=== PATIENT | female | born 1980 | race Two or more races ===

== ENCOUNTER 2019-02-13 02:20 | Inpatient (IN) | payer BC ==
[2019-02-13] MEDS ORDERED: DEXTROSE 5%-LACTATED RINGERS 500 ML IV ONE (03:00)
[2019-02-13 03:43] LABS: BASO % 0.6 % (0-2.0); EOS % 2.4 % (0-4.5); HEMOGLOBIN 12.2 GM/dL (10.7-15.3); LYMPH % 24.2 % (8-40); MCH 28.1 pg (25.7-33.7); MCHC 33.1 g/dl (32.0-36.0); MEAN CELL VOLUME 84.8 fl (80-96); MEAN PLT VOLUME 8.3 fl (7.5-11.1); NEUT % 64.8 % (42.8-82.8); PLATELET COUNT 223 K/MM3 (134-434); RBC 4.36 M/mm3 (3.60-5.2); RDW 13.7 % (11.6-15.6); WHITE BLOOD COUNT 8.2 K/mm3 (4.0-10.0)
[2019-02-13 03:58] LABS: INR 0.83 (0.83-1.09); PROTHROMBIN TIME (PATIENT) 9.8 SEC (9.7-13.0)
[2019-02-13] MEDS ORDERED: AMPICILLIN - 2 GM in SODIUM CHLORIDE 100 ML IVPB STA (04:00)
[2019-02-13] MEDS ORDERED: DEXTROSE 5%-LACTATED RINGERS 1,000 ML IV SCH (04:00)
[2019-02-13] MEDS ORDERED: BETAMET ACET/BETAMET NA PH 30 MG/5 ML VIAL ONE (04:10)
[2019-02-13] MEDS ORDERED: AMPICILLIN SODIUM 2 GM VIAL ONE (04:10)
[2019-02-13 04:18] LABS: BLOOD UREA NITROGEN 9.5 mg/dL (7-18); CALCIUM 9.1 mg/dL (8.5-10.1); CREATININE 0.5 mg/dL (0.55-1.3); POTASSIUM 3.8 mmol/L (3.5-5.1)
[2019-02-13 04:54] LABS: ACTIVATED PTT 28.9 SECONDS (25.2-36.5)
[2019-02-13] MEDS ORDERED: BETAMET ACET/BETAMET NA PH 30 MG/5 ML VIAL IM ONE (05:00)
[2019-02-13 05:23] VITALS: BMI 23.4
[2019-02-13] MEDS ORDERED: AMPICILLIN - 2 GM in SODIUM CHLORIDE 100 ML IVPB ONE (06:56)
[2019-02-13] MEDS ORDERED: ELECTROLYTE-148 SOLN 1,000 ML IV SCH (07:00)
[2019-02-13] MEDS: AMPICILLIN - 1 GM in SODIUM CHLORIDE 100 ML IVPB SCH ×4 (08:00→20:55)
[2019-02-13] MEDS ORDERED: AMPICILLIN SODIUM 1 GM VIAL ONE ×4 (08:26→20:53)
[2019-02-13] MEDS ORDERED: SODIUM CHLORIDE 100 ML IVPB ONE ×3 (08:26→15:46)
--- NOTE | 2019-02-13 09:41 | HP ---
Past Medical History - Primary Care Physician PCP:: Radha Blue - Admission Chief Complaint: PROM. 33 week History of Present Illness: 38 yo EGA 33.2 week EDC 04/01/19 admitted due to PPROM at 145 am 02/13 no HAs no contractions or bleeding History Source: Patient Limitations to Obtaining History: No Limitations - Past Medical History ...: 1 ...Para: 0 ...Term: 0 ...: 0 ...Spon : 0 ...Induced : 0 ...Multiple Gestation: 0 ...LMP: 06/12/18 ... Weeks Gestation by Dates: 33.2 ...EDC by Dates: 04/01/18 - Past Surgical History Past Surgical History: Yes: None Hx Myomectomy: No Hx Transabdominal Cerclage: No - Smoking History Smoking history: Never smoked - Alcohol/Substance Use Hx Alcohol Use: No History of Substance Use: reports: None - Social History History of Recent Travel: No Home Medications - Allergies Allergies/Adverse Reactions: Allergies Allergy/AdvReac Type Severity Reaction Status Date / Time No Known Allergies Allergy Verified 02/13/19 04:07 Review of Systems - Review of Systems Constitutional: reports: No Symptoms Eyes: reports: No Symptoms HENT: reports: No Symptoms Neck: reports: No Symptoms Cardiovascular: reports: No Symptoms Respiratory: reports: No Symptoms Gastrointestinal: reports: No Symptoms Genitourinary: reports: No Symptoms Breasts: reports: No Symptoms Reported Musculoskeletal: reports: No Symptoms Integumentary: reports: No Symptoms Neurological: reports: No Symptoms Endocrine: reports: No Symptoms Hematology/Lymphatic: reports: No Symptoms Psychiatric: reports: No Symptoms Physical Exam - Maternity Vital Signs: Vital Signs Temperature 98 F 02/13/19 07:00 Pulse Rate 108 H 02/13/19 08:15 Respiratory Rate 20 02/13/19 08:15 Blood Pressure 117/78 02/13/19 08:15 O2 Sat by Pulse Oximetry (%) Constitutional: Yes: Well Nourished, No Distress Cardiovascular: Yes: WNL Lungs: Clear to auscultation Breast(s): Yes: WNL - Abdominal Exam/OB Fundal Height: 33 Number of Fetuses: Single Presentation: Vertex Contractions: Yes Monitor Mode: External Category: I - Vaginal Exam/OB Dilatation (cm): closed Effacement (%): long Amniotic Membrane Status: Ruptured Amniotic Fluid: Yes: Clear Presentation: Vertex/Position - Physical Exam Musculoskeletal: Yes: WNL Extremities: Yes: WNL Edema: No Integumentary: Yes: WNL Psychiatric: Yes: WNL, Alert, Oriented - Labs Lab Results: CBC, BMP 02/13/19 03:35 02/13/19 03:35 Problem List - Problems (1) 33 weeks gestation of Problems reviewed: Yes Code(s): Z3A.33 - 33 WEEKS GESTATION OF (2) PROM (premature rupture of membranes) Problems reviewed: Yes Code(s): O42.90 - BILLY ROM, 7TH0 BETW RUPT & ONST LABR, UNSP WEEKS OF GEST Qualifiers: PROM onset of labor timing: onset of labor more than 24 hours following rupture PROM gestational age: -third trimester Qualified Code(s): O42.113 - premature rupture of membranes, onset of labor more than 24 hours following rupture, third trimester Assessment/Plan IUP at 33.2 week PPROM Cat 1 AMA Plan Send to [facility] for EFW Antibiotics betamethasone repeat in 24 hours
[2019-02-13] MEDS: DEXTROSE 5%-LACTATED RINGERS 1,000 ML IV SCH (10:22)
--- NOTE | 2019-02-13 14:28 | CONSULT ---
Consult - text type - Consultation Consultation Note: Asked by Ob for a consult on Mrs. Zhou. She is a 38 yo at 33.2 weeks , presented with PPROM since 1:45 on 02/13/19. labs: ABpositive, RPR negative, HepBsAg negative, Rubella immune, HIV negative, GBS unknown. As per mother anatomy scan was normal and otherwise uncomplicated. Spoke with Mrs. Zhou and explained to her the possible problems in the related to prematurity and more specifically around the 33-34 weeks gestation like: RDS, low weight, hypoglycemia, and hyperbilirubinemia, need for tehrmoregulation, as well as feeding difficulties or need for r/o sepsis in the context of premature ROM. Explained to her that management will depend on the baby's clinical status. We discussed the importance of . I answered all her questions. Plan as pe ob. Steroids and antibiotics as per ob.
[2019-02-13] MEDS ORDERED: SODIUM CHLORIDE 200 ML IVPB ONE (20:53)
[2019-02-13 22:59] LABS: BASO % 0.2 % (0-2.0); HEMATOCRIT 34.4 % (32.4-45.2); HEMOGLOBIN 11.1 GM/dL (10.7-15.3); LYMPH % 8.6 % (8-40); MCH 27.4 pg (25.7-33.7); MCHC 32.2 g/dl (32.0-36.0); MEAN CELL VOLUME 85.2 fl (80-96); MEAN PLT VOLUME 8.6 fl (7.5-11.1); MONO % 6.6 % (3.8-10.2); NEUT % 84.6 % (42.8-82.8); PLATELET COUNT 224 K/MM3 (134-434); RBC 4.04 M/mm3 (3.60-5.2); RDW 13.7 % (11.6-15.6); WHITE BLOOD COUNT 11.7 K/mm3 (4.0-10.0)
[2019-02-14] MEDS ORDERED: AMPICILLIN SODIUM 1 GM VIAL ONE ×3 (00:13→08:36)
[2019-02-14] MEDS ORDERED: SODIUM CHLORIDE 100 ML IVPB ONE ×3 (00:13→08:35)
[2019-02-14] MEDS: AMPICILLIN - 1 GM in SODIUM CHLORIDE 100 ML IVPB SCH ×4 (01:00→19:55)
[2019-02-14] MEDS ORDERED: CALCIUM CARBONATE SUSPENSION - 500 MG/5 ML ML PO PRN (01:03)
[2019-02-14] MEDS ORDERED: BETAMET ACET/BETAMET NA PH 30 MG/5 ML VIAL IM ONE (05:30)
[2019-02-14] MEDS: DEXTROSE 5%-LACTATED RINGERS 1,000 ML IV SCH (08:00)
[2019-02-14 08:22] LABS: BASO % 0.1 % (0-2.0); HEMATOCRIT 31.1 % (32.4-45.2); HEMOGLOBIN 10.2 GM/dL (10.7-15.3); LYMPH % 10.3 % (8-40); MCH 27.8 pg (25.7-33.7); MCHC 32.9 g/dl (32.0-36.0); MEAN CELL VOLUME 84.5 fl (80-96); MEAN PLT VOLUME 8.6 fl (7.5-11.1); MONO % 4.1 % (3.8-10.2); NEUT % 85.5 % (42.8-82.8); PLATELET COUNT 193 K/MM3 (134-434); RBC 3.68 M/mm3 (3.60-5.2); RDW 13.8 % (11.6-15.6); WHITE BLOOD COUNT 10.6 K/mm3 (4.0-10.0)
[2019-02-14] MEDS ORDERED: morphine SULFATE/PF 0.5 MG/ML (2cc Syringe - QUVA) ONE (09:06)
[2019-02-14] MEDS ORDERED: ePHEDrine SULFATE 50 MG/1 ML AMPULE ONE (09:07)
[2019-02-14] MEDS ORDERED: ceFAZolin SODIUM 1 GM VIAL ONE ×2 (09:07)
[2019-02-14] MEDS ORDERED: CITRIC ACID/SODIUM CITRATE 30 ML UNIT-DOSE CUP PO ONE (10:02)
--- NOTE | 2019-02-14 10:02 | PN ---
Ante-Partal Exam - Subjective Subjective: Pt sp prolonged decel x 3 min after contraction Vital Signs: Vital Signs Temperature 97.9 F 02/14/19 08:00 Pulse Rate 78 02/14/19 08:00 Respiratory Rate 18 02/14/19 08:00 Blood Pressure 114/67 02/14/19 08:00 O2 Sat by Pulse Oximetry (%) Bleeding: No Headache: No Visual changes: No Right upper quadrant pain: No - Contractions Contractions: Yes Regularity: Irregular Monitor Mode: External - Exam during Labor Variability: Moderate Heart Rate Location: [facility] Category: II Monitor Accelerations: Present Monitor Decelerations: Prolonged Amniotic Membrane Status: Intact Amniotic Fluid: Clear Presentation: Vertex - Intrapartum Hemorrhage Risk Risk Score: 0 Risk Level: Low Risk - Assessment/Plan Assessment/Plan: Prolonged Decel Cat 2 PPROM at 33 week Plan Primary Section
[2019-02-14] MEDS ORDERED: METHYLERGONOVINE MALEATE 0.2 MG/1 ML AMP IM PRN (10:03)
[2019-02-14] MEDS ORDERED: WITCH HAZEL 50% (TUCKS) 40 PAD/JAR PAD TP PRN (10:03)
[2019-02-14] MEDS ORDERED: IBUPROFEN 800 MG/8 ML IJ IVPB PRN (10:03)
[2019-02-14] MEDS ORDERED: CLINDAMYCIN PHOSPHATE 600 MG/4 ML VIAL ONE (10:06)
--- NOTE | 2019-02-14 10:10 | OP ---
Operative Note - Note: Operative Date: 02/14/19 Pre-Operative Diagnosis: PPROM. 33 week. Nonreasurring tracing Operation: Primary Low transverse Section Findings: Live male infant Post-Operative Diagnosis: Same as Pre-op Surgeon: Radha Blue Silver Designer: Alexandra Wakefield Anesthesia: Spinal Estimated Blood Loss (mls): 800 Operative Report Dictated: Yes
--- NOTE | 2019-02-14 10:37 | CONSULT ---
Past Medical History, Laborist - Primary Care Physician PCP:: Radha Blue - Admission Chief Complaint: Pt. is admitted at 33 wks 3 days w PPROM since 02.13.19. Bradykardia during routine monitoring for about 2 minutes. Called to the [facility] STAT. History of Present Illness: First bvaby. Given BMZ, on GBS prophylaxis. History Source: Patient, Caregiver Limitations to Obtaining History: No Limitations - Past Medical History ...: 1 ...Para: 0 ...Term: 0 ...: 0 ...Spon : 0 ...Induced : 0 ...Multiple Gestation: 0 ...LMP: 06/12/18 ... Weeks Gestation by Dates: 33.2 ...EDC by Dates: 04/01/18 - Past Surgical History Past Surgical History: Yes: None - Smoking History Smoking history: Never smoked - Alcohol/Substance Use Hx Alcohol Use: No History of Substance Use: reports: None - Social History History of Recent Travel: No Review of Systems - Review of Systems Constitutional: denies: No Symptoms, Chills, Diaphoresis, Fever, Lethargy, Loss of Appetite, Malaise, Night Sweats, Unintentional Wgt. Loss, Weakness, Other Eyes: denies: No Symptoms, Blind Spots, Blurred Vision, Double Vision, Eye Pain , Floaters, Photophobia, Recent Change in Vision, Other HENT: denies: No Symptoms, Difficult Swallowing, Ear Discharge, Ear Pain, Epistaxis, Gingival Bleeding, Hearing Loss, Mouth Swelling, Nasal Congestion, Ocular Prosthesis, Throat Pain, Toothache, Ringing in Ears, Other Neck: denies: No Symptoms, Decreased ROM, Lumps, Pain on Movement, Stiffness, Swollen Glands, Tenderness, Other Cardiovascular: denies: No Symptoms, Chest Pain, Edema, Palpitations, Shortness of Breath, Other Respiratory: denies: No Symptoms, Cough, Exercise Intolerance, Hemoptysis, Orthopnea, PND, Snoring, SOB, SOB on Exertion, Wheezing, Other Gastrointestinal: denies: No Symptoms, Abdominal Pain, Bloating, Constipation, Diarrhea, Dysphagia, Indigestion, Melena, Nausea, Rectal Bleeding, Vomiting, Vomiting Blood, Other Genitourinary: denies: No Symptoms, Burning, Discharge, Dysuria, Flank Pain, Frequency, Hematuria, Incontinence, Lesions, Menses, Pain, Testicular Mass, Testicular Pain, Testicular Swelling, Urgency, Vaginal Bleeding, Other Breasts: denies: No Symptoms Reported, See HPI, Breast Implants, Discharge from Nipple, Lumps, Pain, Skin Changes, Other Musculoskeletal: denies: No Symptoms, Back Pain, Crepitus, Decreased ROM, Extremity Pain, Joint Pain, Joint Swelling, Muscle Pain, Muscle Cramps, Muscle Weakness, Other Integumentary: denies: No Symptoms, Blister, Bruising, Change in Color, Eczema, Erythema, Incision, Lesions, Lump, Pallor, Pruritis, Rash, Wound, Other Neurological: denies: No Symptoms, Change in LOC, Change in Speech, Confusion, Dizziness, Headache, Incoordination, Numbness, Parasthesia, Pre-Existing Deficit , Seizure, Syncope, Tremors, Unsteady Gait, Weakness, Other Endocrine: denies: No Symptoms, Excessive Sweating, Flushing, Increased Hunger, Increased Thirst, Intolerance to Cold, Intolerance to Heat, Unexplained Weight Gain, Unexplained Weight Loss, Other Hematology/Lymphatic: denies: No Symptoms, Easily Bruised, Excessive Bleeding, Swollen Glands, Other Psychiatric: denies: No Symptoms, Altered Sleep Pattern, Anxiety, Depression, Hallucinations, Panic, Paranoia, Suicidal, Other Physical Exam - Maternity Vital Signs: Vital Signs Temperature 97.9 F 02/14/19 08:00 Pulse Rate 78 02/14/19 08:00 Respiratory Rate 18 02/14/19 08:00 Blood Pressure 114/67 02/14/19 08:00 O2 Sat by Pulse Oximetry (%) - Abdominal Exam/OB Fundal Height: 34 Number of Fetuses: Single Presentation: Vertex Contractions: No Monitor Mode: External Heart Rate Location: Midline Category: II - Vaginal Exam/OB Vaginal Bleediing: No Dilatation (cm): 0 Effacement (%): 0 Amniotic Membrane Status: Ruptured Presentation: Vertex/Position Station: -2 - Physical Exam Musculoskeletal: No: WNL, Back Pain, Joint Stiffness, Joint Swelling, Muscle Pain, Muscle Weakness, Other Extremities: No: WNL, Amputation, Calf Tenderness, Cold, Cool, Cyanosis, Deformity, Delayed Capillary Refill, Erythema, External Rotation, Internal Rotation, Pallor, Shortened, Other Integumentary: No: WNL, Body Piercing, Bruising, Erythema, Incision, Jaundice, Laceration, Petechiae, Pressure Ulcer, Rash, Skin Tear, Tattoos, Tenting, Onychomycosis, Venous Stasis Changes, Other - Labs Lab Results: CBC, BMP 02/14/19 07:24 02/13/19 03:35 Problem List - Problems (1) bradycardia, antepartum condition or complication Code(s): O36.8390 - MATERN CARE FOR ABNLT FETL HRT RATE OR RHYM, UNSP TRI, UNSP (2) PROM (premature rupture of membranes) Code(s): O42.90 - BILLY ROM, 7TH0 BETW RUPT & ONST LABR, UNSP WEEKS OF GEST Qualifiers: PROM onset of labor timing: onset of labor more than 24 hours following rupture PROM gestational age: -third trimester Qualified Code(s): O42.113 - premature rupture of membranes, onset of labor more than 24 hours following rupture, third trimester Assessment/Plan Called to patient for bradykardia of about 2 minutes. Reactive tracing prior to this episode. Responded to repositioning. Transfer ro L&D from the floor. Continuous monitor. CBC pnd. Delivery by induction vs. c/section. TBD following discussion with the attending MD, Dr. Blue.
[2019-02-14] MEDS ORDERED: KETOROLAC TROMETHAMINE 30 MG/1 ML VIAL ONE (11:08)
--- NOTE | 2019-02-14 11:29 | SURG ---
Surgery Biblical Languages Professor Note Biblical Languages Professor: Alexandra Wakeifeld PA-C Date of Service: 02/14/19 Diagnosis: PPROM. 33 week. Nonreasurring tracing Procedure: Primary Section I was present for the entirety of the operative procedure. For further detail, please refer to operative report. Visit type - Case Type Case Type: ED Admission - Emergency Emergency Visit: Yes ED Registration Date: 02/13/19 Care time: The patient presented to the Emergency Department on the above date and was hospitalized for further evaluation of their emergent condition. - New patient This patient is new to me today: Yes Date on this admission: 02/14/19
[2019-02-14 11:39] LABS: POC NITRAZINE POS
[2019-02-14] MEDS ORDERED: ONDANSETRON 4 MG/2 ML VIAL IVPUSH PRN (11:54)
--- NOTE | 2019-02-14 11:54 | OP ---
DATE OF OPERATION: 02/14/2019 PREOPERATIVE DIAGNOSIS: Nonreassuring tracing, intrauterine at 33.4 weeks as well as premature rupture of membranes. OPERATION: Primary low transverse section. POSTOPERATIVE DIAGNOSIS: Live male . SURGEON: Radha Blue MD GLOBAL LOGISTICS ANALYST: DOMINGO Mittal. unavailable. ANESTHESIA: Spinal. DESCRIPTION OF PROCEDURE: Patient was taken to the operating room. Placed in supine position. Prepped and draped in usual sterile fashion. Time-out was performed in accordance with hospital regulation. Pfannenstiel skin incision was made with a scalpel. Cautery was then used to go through layers of abdominal wall to the level of the fascia. Fascia was cut in the midline. Cautery was then used to open the fascia in a smiling fashion. Kochers were then used to bluntly and sharply dissect the rectus muscle off the fascia. Muscle was split in the midline. Peritoneal cavity was then entered and carried upward and downward. Bladder retractor was then placed. Scalpel was then used to make a low transverse uterine incision. Incision was carried upward using bandage scissors. Live male was delivered in OT position. Nuchal cord x2 was reduced. Shoulders were delivered without difficulty. Cord was clamped and cut. Cord blood obtained. Cord pH obtained. was handed to oil field equipment mechanic supervisor. Placenta was manually extracted from the uterus. The uterus was exteriorized and cleaned with clean lap pads. Uterine incision then closed using 0 Biosyn suture, 1st layer continuous and locking, 2nd layer imbricating the 1st layer. Hemostasis was achieved. Uterus interiorized. Tubes and ovaries noted to be normal. Abdominal sweep done. Peritoneum was then cleaned with clean lap pads. Peritoneum was then closed using 0 Biosyn suture, 1st layers continuous and locking with continuous stitch. Fascia was then closed using 0 Vicryl suture in 2 parts. The skin was then closed using 3-0 Vicryl in subcuticular fashion. Wound was washed and dressed. Patient tolerated the procedure well. Estimated blood loss was 500 mL. RADHA BLUE M.D. GAURAV/[id number]
[2019-02-14] MEDS ORDERED: ACETAMINOPHEN/CAFFEINE/BUTALBITAL 1 TAB PO PRN (11:58)
[2019-02-14] MEDS: OXYTOCIN 20 UNITS in 0.9% NS 20 UNIT/1,000 ML INFUS.BAG IV SCH ×2 (12:00→20:08)
[2019-02-14] MEDS: DOCUSATE SODIUM 100 MG CAPSULE (FP) PO SCH ×2 (13:00→22:09)
[2019-02-14] MEDS ORDERED: COSYNTROPIN 0.25 MG VIAL IVPB SCH (13:00)
[2019-02-14] MEDS: CEFAZOLIN 1 GM/D5W 1 GM/50 ML BAG IVPB SCH (17:08)
[2019-02-15] MEDS: CEFAZOLIN 1 GM/D5W 1 GM/50 ML BAG IVPB SCH ×2 (02:35→09:10)
[2019-02-15] MEDS: SIMETHICONE 80 MG TAB.CHEW (FP) PO PRN ×4 (06:49→22:13)
[2019-02-15] MEDS: IBUPROFEN 600 MG TABLET (FP) PO PRN ×4 (06:49→22:14)
[2019-02-15] MEDS: PRENATAL VITAMINS W/ FOLIC ACID TABLET (FP) PO SCH (09:10)
[2019-02-15] MEDS: DOCUSATE SODIUM 100 MG CAPSULE (FP) PO SCH ×2 (09:10→22:13)
[2019-02-15] MEDS ORDERED: oxyCODONE HCL 5 MG TABLET PO PRN (10:03)
[2019-02-15] MEDS ORDERED: BISACODYL 10 MG SUPP.RECT RC PRN (10:03)
[2019-02-15] MEDS: oxyCODONE HCL 5 MG TABLET PO PRN ×3 (10:27→22:13)
--- NOTE | 2019-02-15 10:38 | PN ---
Progress Note, Physician Chief Complaint: s/p c section for PPROM post op day one History of Present Illness: under spinal anesthesia with duramorph for post operative pain control. - Current Medication List Current Medications: Active Medications Acetaminophen/Butalbital/Caffeine (Fioricet -) 1 tablet PO Q4H PRN PRN Reason: HEADACHE Bisacodyl (Dulcolax Suppository -) 10 mg RC PRN PRN PRN Reason: CONSTIPATION Calcium Carbonate (Calcium Carb Oral Suspension -) 500 mg PO Q4H PRN PRN Reason: DYSPEPSIA Diphenhydramine HCl (Benadryl Injection -) 25 mg IVPUSH Q4H PRN PRN Reason: Pruritis Last Admin: 02/14/19 17:35 Dose: 25 mg Docusate Sodium (Colace -) 100 mg PO BID EUSEBIO Last Admin: 02/15/19 09:10 Dose: 100 mg Ferrous Sulfate (Feosol -) 325 mg PO BID EUSEBIO Cefazolin Sodium (Ancef 1 Gm Premixed Ivpb -) 1 gm in 50 mls @ 100 mls/hr IVPB Q8H-IV EUSEBIO Stop: 02/15/19 17:59 Last Admin: 02/15/19 09:10 Dose: 100 mls/hr Oxytocin/Sodium Chloride (Normal Saline+20 Units Oxytocin -) 20 unit in 1,000 mls @ 125 mls/hr IV ASDIR EUSEBIO Last Admin: 02/14/19 20:08 Dose: 125 mls/hr Ibuprofen (Caldolor Injection -) 800 mg IVPB Q8H PRN PRN Reason: FEVER Ibuprofen (Motrin -) 600 mg PO Q4H PRN PRN Reason: PAIN LEVEL 1 - 3 Last Admin: 02/15/19 10:26 Dose: 600 mg Methylergonovine Maleate (Methergine Injection -) 0.2 mg IM Q4H PRN PRN Reason: Excessive Bleeding (L&D) Ondansetron HCl (Zofran Injection) 4 mg IVPUSH Q4H PRN PRN Reason: NAUSEA Oxycodone HCl (Roxicodone -) 5 mg PO Q4H PRN PRN Reason: PAIN LEVEL 4 - 6 Last Admin: 02/15/19 10:27 Dose: 5 mg Oxycodone HCl (Roxicodone -) 10 mg PO Q4H PRN PRN Reason: PAIN LEVEL 7 - 10 Multivit/Folic Acid/Iron ( Vitamins (Sjr) -) 1 tab PO DAILY EUSEBIO Last Admin: 02/15/19 09:10 Dose: 1 tab Simethicone (Mylicon -) 80 mg PO Q4H PRN PRN Reason: GAS Last Admin: 02/15/19 10:27 Dose: 80 mg Witch Maritza/Glycerin (Tucks Pads -) 1 pad TP PRN PRN PRN Reason: Pain - Topical - Objective Vital Signs: Vital Signs Temperature 97.7 F 02/15/19 09:55 Pulse Rate 86 02/15/19 09:55 Respiratory Rate 18 02/15/19 10:00 Blood Pressure 121/68 02/15/19 09:55 O2 Sat by Pulse Oximetry (%) 98 02/14/19 12:25 Constitutional: Yes: Well Nourished Cardiovascular: Yes: WNL Respiratory: Yes: WNL Gastrointestinal: Yes: WNL Labs: CBC, BMP 02/14/19 07:24 02/13/19 03:35 INR, PTT INR 0.83 (0.83-1.09) 02/13/19 03:35 Assessment/Plan patient had CSF leak with the 19 gauge introducer and was advised on the high likelihood PDPH. No symptoms currently, pain controlled, no further interventio at this time. Advised patient to increase fluid and caffeine intake as prophylaxis. Please consult the dept of anesthesiology with any signs of PDPH in the next few days.
[2019-02-15 11:04] LABS: BASO % 0.1 % (0-2.0); HEMOGLOBIN 9.3 GM/dL (10.7-15.3); LYMPH % 7.8 % (8-40); MCH 28.2 pg (25.7-33.7); MCHC 33.3 g/dl (32.0-36.0); MEAN CELL VOLUME 84.6 fl (80-96); MEAN PLT VOLUME 8.3 fl (7.5-11.1); MONO % 5.7 % (3.8-10.2); NEUT % 86.4 % (42.8-82.8); PLATELET COUNT 228 K/MM3 (134-434); RBC 3.31 M/mm3 (3.60-5.2); WHITE BLOOD COUNT 13.6 K/mm3 (4.0-10.0)
--- NOTE | 2019-02-15 15:31 | PN ---
Post Note - Post Date of Delivery: 02/14/19 Vital Signs: Vital Signs - 24 hr 02/14/19 02/14/19 02/14/19 16:00 17:00 18:00 Temperature Pulse Rate Respiratory 20 20 18 Rate Blood Pressure 02/14/19 02/14/19 02/14/19 19:00 20:00 21:00 Temperature Pulse Rate Respiratory 18 18 18 Rate Blood Pressure 02/14/19 02/14/19 02/15/19 22:00 23:00 00:00 Temperature 98.5 F Pulse Rate 83 Respiratory 18 18 18 Rate Blood Pressure 101/54 L 02/15/19 02/15/19 02/15/19 01:00 02:00 03:00 Temperature 98.2 F Pulse Rate 81 Respiratory 18 18 18 Rate Blood Pressure 113/59 L 02/15/19 02/15/19 02/15/19 04:00 05:00 06:00 Temperature 97.9 F Pulse Rate 76 Respiratory 18 18 18 Rate Blood Pressure 109/52 L 02/15/19 02/15/19 02/15/19 07:00 08:00 09:00 Temperature Pulse Rate Respiratory 18 18 18 Rate Blood Pressure 02/15/19 02/15/19 02/15/19 09:55 10:00 11:00 Temperature 97.7 F Pulse Rate 86 Respiratory 18 18 18 Rate Blood Pressure 121/68 Labs: Laboratory Results - last 24 hr 02/15/19 10:44 WBC 13.6 H RBC 3.31 L Hgb 9.3 L Hct 28.0 L MCV 84.6 MCH 28.2 MCHC 33.3 RDW 14.0 Plt Count 228 MPV 8.3 Absolute Neuts (auto) 11.8 H Neutrophils % 86.4 H Lymphocytes % 7.8 L D Monocytes % 5.7 Eosinophils % 0.0 Basophils % 0.1 Nucleated RBC % 0 - Subjective Subjective: No Complaints - Objective Afebrile: Yes Breast: Not engorged
[2019-02-15] MEDS: OXYTOCIN 20 UNITS in 0.9% NS 20 UNIT/1,000 ML INFUS.BAG IV SCH (19:44)
[2019-02-15] MEDS: FERROUS SO4 325 MG TABLET (FP) PO SCH (22:13)
[2019-02-16] MEDS: oxyCODONE HCL 5 MG TABLET PO PRN ×3 (08:44→23:39)
[2019-02-16] MEDS: IBUPROFEN 600 MG TABLET (FP) PO PRN ×3 (08:44→23:40)
[2019-02-16] MEDS: SIMETHICONE 80 MG TAB.CHEW (FP) PO PRN ×3 (08:46→23:39)
--- NOTE | 2019-02-16 08:52 | PN ---
Progress Note (short form) - Note Progress Note: POD #2 s/p C/S under spinal anesthesia with Duramorph. Doing well, pain controlled with oral Rx. Patient had CSF leak with 19g introducer, treated with conservative measures prophylactically. Patient denies symptoms of PDPH at this time, ambulating and able to pump. All questions answered.
[2019-02-16] MEDS: FERROUS SO4 325 MG TABLET (FP) PO SCH ×2 (10:14→22:25)
[2019-02-16] MEDS: DOCUSATE SODIUM 100 MG CAPSULE (FP) PO SCH ×2 (10:14→22:25)
[2019-02-16] MEDS: PRENATAL VITAMINS W/ FOLIC ACID TABLET (FP) PO SCH (10:14)
--- NOTE | 2019-02-16 18:46 | PN ---
Post Note - Post Date of Delivery: 02/14/19 Post Day: 2 Vital Signs: Vital Signs - 24 hr 02/15/19 02/16/19 22:00 10:00 Temperature 98.1 F 98.1 F Pulse Rate 71 78 Respiratory 18 18 Rate Blood Pressure 119/67 116/70 - Subjective Subjective: No Complaints - Objective Afebrile: Yes Breast: Not engorged Abdomen: Soft, Non-tender Uterus: Fundus firm Vagina: Scant lochia Extremities: Non-tender - Assessment/Plan (1) 33 weeks gestation of Assessment: Other (SP Primary Section) Plan: Routine Care
--- NOTE | 2019-02-17 08:08 | PN ---
Post Note - Post Date of Delivery: 02/14/19 Vital Signs: Vital Signs - 24 hr 02/16/19 02/16/19 10:00 22:00 Temperature 98.1 F Pulse Rate 78 79 Respiratory 18 18 Rate Blood Pressure 116/70 121/73 - Subjective Subjective: No Complaints - Objective Afebrile: Yes Breast: Not engorged Abdomen: Soft Uterus: Fundus firm Vagina: Scant lochia Extremities: Non-tender
[2019-02-17] MEDS: PRENATAL VITAMINS W/ FOLIC ACID TABLET (FP) PO SCH (09:49)
[2019-02-17] MEDS: FERROUS SO4 325 MG TABLET (FP) PO SCH ×2 (09:49→22:07)
[2019-02-17] MEDS: DOCUSATE SODIUM 100 MG CAPSULE (FP) PO SCH ×2 (09:49→22:07)
[2019-02-17 10:22] LABS: BASO % 0.4 % (0-2.0); EOS % 2.1 % (0-4.5); HEMOGLOBIN 10.4 GM/dL (10.7-15.3); LYMPH % 15.4 % (8-40); MCH 28.5 pg (25.7-33.7); MCHC 33.5 g/dl (32.0-36.0); MEAN PLT VOLUME 7.9 fl (7.5-11.1); NEUT % 75.1 % (42.8-82.8); PLATELET COUNT 280 K/MM3 (134-434); RBC 3.65 M/mm3 (3.60-5.2); RDW 13.8 % (11.6-15.6); WHITE BLOOD COUNT 14.5 K/mm3 (4.0-10.0)
[2019-02-17] MEDS: oxyCODONE HCL 5 MG TABLET PO PRN ×2 (11:47→22:10)
[2019-02-17] MEDS: IBUPROFEN 600 MG TABLET (FP) PO PRN ×2 (11:47→22:09)
[2019-02-17] MEDS: SIMETHICONE 80 MG TAB.CHEW (FP) PO PRN ×2 (11:48→22:07)
[2019-02-17 13:54] LABS: ANISOCYTOSIS 0; MACROCYTOSIS 0; PLATELET ESTIMATE NORMAL
[2019-02-17 23:13] VITALS: TEMP 98.7
[2019-02-18] MEDS: oxyCODONE HCL 5 MG TABLET PO PRN (08:04)
[2019-02-18] MEDS: IBUPROFEN 600 MG TABLET (FP) PO PRN (08:05)
--- NOTE | 2019-02-18 08:24 | DS ---
Physical Exam-AIR SAW OPERATOR Vital Signs: Vital Signs Temperature 98.7 F 02/17/19 22:00 Pulse Rate 74 02/17/19 22:00 Respiratory Rate 18 02/17/19 22:00 Blood Pressure 122/70 02/17/19 22:00 O2 Sat by Pulse Oximetry (%) 98 02/14/19 12:25 Constitutional: No: No Distress Eyes: Yes: Conjunctiva Clear HENT: Yes: Atraumatic Neck: Yes: Supple Cardiovascular: Yes: Regular Rate and Rhythm Respiratory: Yes: Regular Gastrointestinal: Yes: Normal Bowel Sounds ...Rectal Exam: Yes: WNL Renal/: Yes: WNL Pelvis: Yes: WNL External Genitalia: Yes: Normal Vaginal Exam: Yes: Normal Cervix: Yes: Normal Uterus: Yes: Firm ....Post : Yes: Uterus firm, Moderate lochia serosa Breast(s): Yes: WNL Musculoskeletal: Yes: WNL Extremities: Yes: WNL Wound/Incision: Yes: Well Approximated, Steri Strips (in place) Neurological: Yes: Alert, Oriented ...Motor Strength: WNL Psychiatric: Yes: Alert, Oriented Labs: CBC, BMP 02/17/19 09:55 02/13/19 03:35 Delivery - Delivery Type of Anesthesia: Spinal Episiotomy/Laceration: None EBL (cc): 800 Delivery, Single - Stages of Labor Date of Delivery: 02/14/19 Time of Delivery: 10:55 Time Placenta Delivered: 10:56 - Condition of Lead Database Administrator/Beater Out Present: Yes Name: Loyda Sierra Gender: Male Weight: 4 lb 4 oz Position: OT Total Hours ROM (Hrs/Mins): 33h11m - 1 Minute Total Score: 9 5 Minutes Total Score: 9 - [address] Feeding Plan Initial Plan: Elected not to breastfeed exclusively throughout hospitalization Discharge Summary Problems reviewed: Yes Reason For Visit: LABOR ADMIT Current Active Problems 33 weeks gestation of (Acute) bradycardia, antepartum condition or complication (Acute) PROM (premature rupture of membranes) (Acute) Procedures: Principal: Primary Low Transverse Hospital Course: Routine post op care Health Concerns: None Plan of Treatment: Analgesia as needed Follow up with MD in 1 week Goals: Resume normal activities in 6 weeks Condition: Good - Instructions Diet, Activity, Other Instructions: Physical activity Resume your normal everyday activity as tolerated no heavy lifting or exercise until seen by your surgeon. You may walk unlimited augusto of and climb stairs. You may resume driving the car when you feel safe and comfortable behind the wheel. No sexual activity as instructed. Wound care If you have a bandage, leave it on, and keep dry for 48-72 hours. After that time discard the outer bandage. If they are tapes on the skin under the out of bandage leave them in place. They will peel off in the next 7 to 10 days. Do Not Peel them off. You may shower the day after surgery. If there are tapes present on the skin, you may shower over them. Diet There are no dietary restrictions. Eat healthy, high-fiber foods. Drink 6 to 8 glasses of liquid each day. This will assist in keeping your bowels are regular. Pain management You may take Tylenol or acetaminophen or Ibuprofen (for example, Motrin, Advil etc.) from my pain prescription medication is ordered should be taken as prescribed for moderate to severe pain. Call MD for any of the following: Severe pain not relieved by medication Fever of 101 or higher Excessive bleeding or drainage on dressing Inability to urinate Disposition: HOME - Home Medications Comprehensive Discharge Medication List: Ambulatory Orders Vitamins (Sjr) - 1 tab PO DAILY 02/14/19
[2019-02-18] MEDS: PRENATAL VITAMINS W/ FOLIC ACID TABLET (FP) PO SCH (10:22)
[2019-02-18] MEDS: DOCUSATE SODIUM 100 MG CAPSULE (FP) PO SCH (10:22)
[2019-02-18] MEDS: FERROUS SO4 325 MG TABLET (FP) PO SCH (10:22)
[2019-02-18 10:41] VITALS: BP 117/71; PULSE 71
--- NOTE | 2019-02-22 15:11 | PATH ---
Surgical Pathology Report Patient Name: DALE ALMONTE Med. Rec. #: [id number] /Age/Gender: 1980 (Age: 38) / F Account: [id number] Location: [facility] OBS/COMPANY SECRETARY Taken: 02/14/2019 Received: 02/15/2019 Reported: 02/22/2019 Physicians: Radha Blue M.D. Specimen(s) Received PLACENTA Clinical History at 33.4 weeks, SROM, status post betamethasone x2, nonreassuring heart rate Final Diagnosis PLACENTA: THIRD TRIMESTER PLACENTA. TRIVASCULAR CORD. MEMBRANES WITH NO DIAGNOSTIC ABNORMALITIES. Electronically Signed Court Christianson M.D. Gross Description The specimen is received fresh labeled placenta and is a 329 gram, 13.0 x 12.5 x 2.8 cm. placenta with attached membranes and umbilical cord. The attached membranes are andrade, translucent with focal opacities and insert marginally. The umbilical cord measures 8 cm. in length and averages 0.8 cm. in diameter. The cord inserts eccentrically, 2 cm. to the nearest margin. No true knots or strictures are identified. Cut surface of the umbilical cord reveals 3 vessels. The surface is oconnor-blue with minimal fibrin deposition and appropriate caliber vessels. The maternal surface is red-brown with focal defects. Sectioning reveals red-brown, spongy parenchyma. No lesions are identified. Homemaker Companion sections are submitted in three cassettes as follows: 1- membrane rolls and umbilical cord; 2-3- full thickness sections of placenta. 02/21/201902/21/2019
== END 2019-02-18 13:40 | disposition home or self-care (01) | DRG 787 ==
LOC: JDEL 02:20 → JLDR 03:00 → J3W 13:50 → JLDR 02-14 09:40 → J3W 02-14 13:28
PROVIDERS: ADMIT Obstetrics & Gynecology; ATTEND Obstetrics & Gynecology
PROC: 10D00Z1 Extraction of Products of Conception, Low, Open Approach (ICD-10-PCS; principal; 2019-02-14)
DX: O42.913 Preterm premature rupture of membranes, unspecified as to length of time between rupture and onset of labor, third trimester (principal); G96.0 Cerebrospinal fluid leak; O75.89 Other specified complications of labor and delivery; O76 Abnormality in fetal heart rate and rhythm complicating labor and delivery; R00.1 Bradycardia, unspecified; Z3A.33 33 weeks gestation of pregnancy; Z37.0 Single live birth
CPT/HCPCS: 36415; 36600; 80048; 82803; 83986-QW; 85025; 85610; 85730; 86593; 86850; 86900; 86901; 88307-TC; 96372; J0834